=== PATIENT | female | born 1990 | race Hispanic/Latino ===

== ENCOUNTER 2017-10-20 13:37 | Emergency (ER) | payer MEDICAID, SELFPAY ==
[2017-10-20 13:38] VITALS: BP 112/66; PULSE 76; RESP 14; TEMP 36.2; O2SAT 99; BMI 25.7
--- NOTE | 2017-10-20 15:01 | ED.VISSUMM ---
- ER Visit Summary Date of Service: 10/20/17 Chief Complaint: Rash History of Present Illness: The patient is a 27 F who presents with a rash. It began about 2-3 days ago. She is concerned for possible shingles. She initially noticed some red raised bumps which were pruritic and then burning. She thought these may be due to bug bites. However then she became really sick. She clarified the symptoms as a sore throat and chills. She is now concerned that this may be due to shingles because she had similar symptoms previously when she was diagnosed with shingles and then strep throat. No fever chest pain shortness of breath cough congestion vomiting diarrhea. No headache muscle aches or joint aches. Physical Examination: Afebrile vitals are stable Moist mucous membranes Oropharynx is clear no exudates no uvular deviation Heart regular rate and rhythm Lungs are clear Abdomen soft Patient has a few small raised red lesions on her back which appear consistent with possible bug bites. Test Results: Not indicated Emergency Department Course and Treatment: Patient was reassured. Her rash is not consistent with shingles. It is bilateral on the lower back. There are no vesicles. It does not appear cellulitic. It is not hot to the touch and there is no streaking. There is no fluctuance. She was advised to use Benadryl for itching and was discharged home. Treatment Plan: [] Disposition: Discharge Impression: Rash This note was generated with [employer] dictation software. It may contain incorrect words, spelling, and punctuation that were not noted in review of the chart prior to signing ED Disposition - Plan for ED Patient: Chief Complaint: Rash Referrals: Care Physician,No Primary [Primary Care Provider] -
--- NOTE | 2017-10-20 15:04 | ED.DEP ---
ED Disposition - Plan for ED Patient: Chief Complaint: Rash Instructions: ED Bite Insect Referrals: Care Physician,No Primary [Primary Care Provider] -
[2017-10-20 15:11] VITALS: BP 110/76; PULSE 83; RESP 14; O2SAT 99
== END 2017-10-20 15:15 | disposition home or self-care (01) ==
PROVIDERS: Emergency Provider Emergency Medicine
DX: R21 Rash and other nonspecific skin eruption (principal)
CPT/HCPCS: 99282

== ENCOUNTER → 2020-05-20 | Outpatient (CLI) | payer BC, SELFPAY ==
[2019-07-20 12:28] VITALS: BMI 25.7
== END | disposition home or self-care (01) ==
PROVIDERS: Referring Provider Family Medicine; Visit Provider Family Medicine
DX: Z03.818 Encounter for observation for suspected exposure to other biological agents ruled out (principal)
CPT/HCPCS: 87635; U0003

== ENCOUNTER → 2020-06-03 15:00 | Outpatient (CLI) | payer BC, SELFPAY ==
[2019-07-20 12:28] VITALS: BMI 25.7
== END ==
PROVIDERS: Visit Provider Family Medicine
DX: Z03.818 Encounter for observation for suspected exposure to other biological agents ruled out (principal)
CPT/HCPCS: 87635; U0003

== ENCOUNTER → 2020-06-07 17:53 | Outpatient (CLI) | payer BC, SELFPAY ==
[2019-07-20 12:28] VITALS: BMI 25.7
== END ==
PROVIDERS: Referring Provider Nurse Practitioner Family; Visit Provider Nurse Practitioner Family
DX: B34.9 Viral infection, unspecified (principal); Z20.828 Contact with and (suspected) exposure to other viral communicable diseases
CPT/HCPCS: 87635; C9803; U0003

== ENCOUNTER → 2020-07-01 | Outpatient (CLI) | payer BC, SELFPAY ==
[2019-07-20 12:28] VITALS: BMI 25.7
== END | disposition home or self-care (01) ==
LOC: LABSPEC 13:50
PROVIDERS: Referring Provider Family Medicine; Visit Provider Family Medicine
DX: Z03.818 Encounter for observation for suspected exposure to other biological agents ruled out (principal)
CPT/HCPCS: 87635; U0003

== ENCOUNTER 2022-12-20 18:00 | Emergency (ER) | payer MEDICAID, SELFPAY ==
[2022-12-20 18:01] VITALS: BP 117/77; PULSE 127; RESP 18; TEMP 37.1; O2SAT 98; BMI 29.0
[2022-12-20] MEDS: Acetaminophen 650 MG/20 ML UDC PO (19:43)
[2022-12-20] MEDS: Ibuprofen 100 MG/5 ML UDC 600 MG PO (19:45)
--- NOTE | 2022-12-20 19:52 | EX.ED.DYSGE1 ---
HPI History of Present Illness Chief Complaint: Cold Sx Informant: patient Narrative Narrative: Patient is a 32 year old female with remote history of migraines presenting with sore throat, myalgias and flulike symptoms. Patient states she worked a 12-hour shift yesterday. Towards other shift she developed a sore throat, body aches and started shivering. Her temperature got up to 99.7. She states she just felt out of it, has had nasal congestion and had a cold. She has been sleeping all day. She states she took ibuprofen at 430 this morning has had none since. She notes that strep throat has been going around her workplace. She denies any difficulty breathing. She states that she has increased throat pain whenever she coughs. No other complaints at this time. Denies any GI or symptoms. Patient states she is not concerned for . PFSH PFSH Medical History no medical history Home Medications NK 10/20/17 [History Last Taken Unknown] Allergy/AdvReac Type Severity Reaction Status Date / Time No Known Allergies Allergy Verified 12/20/22 18:03 Social History Smoking Status: Never smoker ROS ROS ED Constitutional Constitutional ED: Reports chills, fever(s) and subjective Eyes Eyes: Denies blurry vision or change in vision ENT ENT ED: Reports sore throat; Denies ear pain or rhinorrhea Cardiovascular Cardiovascular: Denies chest pain or palpitations Respiratory/Chest Respiratory/Chest: Reports cough; Denies dyspnea Gastrointestinal Gastrointestinal: Denies abdominal pain, constipation, diarrhea, nausea or vomiting Genitourinary Genitourinary ED: Denies dysuria or hematuria Musculoskeletal Musculoskeletal: Reports myalgias; Denies arthralgias, back pain or neck pain Integumentary Denies rash Neurologic Neurologic: Reports headache(s); Denies paresthesias or weakness Psychiatric Psychiatric: Denies anxiety EXAM Physical Exam Const Vital Signs: 12/20/22 18:01 12/20/22 20:17 Temperature 98.7 F Temperature Source Temporal Pulse Rate 127 H Respiratory Rate 18 Respiratory Effort Normal Non-Labored Respiratory Depth Normal Respiratory Pattern Normal Blood Pressure 117/77 Blood Pressure Mean 90 Pulse Ox 98 Oxygen Delivery Method Room Air Positive well nourished and well developed Constitutional Narrative: Patient looks like she does not feel good but is not appear to be in any acute distress General Appearance ED: well developed and NAD HEENT Reports TM's clear and moist mucous membranes HEENT Narrative: No significant nasal congestion present. No significant tonsillar edema. No exudate present. Patient does have erythema/petechia of her uvula and hard palates. Negative for trauma Tympanic Membrane ED: Yes TM's clear Eyes PERRL and EOMs intact bilaterally Neck supple Neck Narrative: No meningeal signs General: Negative for tenderness Chest Wall inspection of chest normal and palpation of chest normal Resp normal respiratory effort and clear to auscultation bilaterally Cardio regular rhythm and no murmurs Rate: tachycardic GI normal to inspection, nondistended, normoactive bowel sounds and non-tender Extremity normal to inspection Neuro oriented x3 Sensorium / Orientation: alert Motor Exam: general weakness Psych mental status grossly normal Skin no rashes or lesions noted MDM MDM MDM Narrative Medical decision making narrative: Patient is evaluated for flulike symptoms. On arrival she is tachycardic. Patient peers nontoxic. She does not like does not feel good. She has associated myalgias, congestion, cold symptoms and sore throat. Strep swab is negative. Flu and COVID are negative. Patient is given oral ibuprofen and Tylenol. On repeat evaluation she states she is feeling better and ready to go home. She does not appear toxic and improved with antipyretics. I do not think she requires further work-up at this time. In addition she is only had 1 day of symptoms. She is given return precautions. Encouraged to rest and drink plenty of fluids. She verbalizes agreement and understanding this plan. Discharge Plan Triage Chief Complaint: Cold Sx ED Provider: Mariana Strange Dx/Rx/DC Orders Clinical Impression: Viral illness, Headache, Pharyngitis Instructions: ED Pharyngitis, Viral, ED Viral Syndrome (Adult) Prescriptions: No Action NK Primary Care Provider: Leandro Hogan Referrals: Leandro Hogan MD [Primary Care Provider] - Activity Restrictions/Additional Instructions: Alternate ibuprofen and Tylenol. If you have a progression or worsening symptoms please return to the emergency room. Make sure you are resting and drinking plenty of fluids. Your strep swab, COVID and flu swabs were negative today. Your strep swab will be sent for culture. If it does come back positive you will be contacted and called in antibiotics. Disposition Disposition: Home, Self Care Discharge Date/Time: 12/20/22 21:51
== END 2022-12-20 21:51 | disposition home or self-care (01) ==
PROVIDERS: Emergency Provider Emergency Medicine; PCP Family Medicine; Visit Provider Emergency Medicine
DX: B34.9 Viral infection, unspecified (principal); R51.9 Headache, unspecified; J02.9 Acute pharyngitis, unspecified
CPT/HCPCS: 87428; 87880; 99283

== ENCOUNTER 2023-05-16 10:41 | Emergency (ER) | payer SELFPAY ==
[2023-05-16 10:44] VITALS: BP 115/71; PULSE 81; RESP 14; TEMP 36.9; O2SAT 100; BMI 31.0
--- NOTE | 2023-05-16 11:12 | EX.ED.DYSGE1 ---
HPI History of Present Illness Chief Complaint: Rash Narrative Narrative: Patient presents with rash on right hip/buttock area. Patient noted some discomfort in her back last week. She was placing [id number] cream on the area. She then started to notice a rash over the last days. It may be as long as 5 days. But it really started burning and hurting over the last 24 hours. She at first thought the rash may be due to the cream. But now she it feels more like shingles which she had once about 9 years ago. She states other than the rash area she feels fine. There is no weakness. No urinary symptoms. She is eating and drinking normally. She has no medical conditions, takes no medicines and has no allergies. [facility] Medical History History of shingles Home Medications prednisone 20 mg tablet 60 mg (3 x 20 mg) PO DAILY #15 TABLETS 05/16/23 [Rx Last Taken Unknown] valacyclovir 1 gram tablet 1,000 mg PO Q8H #21 tabs 05/16/23 [Rx Last Taken Unknown] Allergy/AdvReac Type Severity Reaction Status Date / Time No Known Allergies Allergy Verified 05/16/23 10:47 Social History Smoking Status: Never smoker ROS ROS ED Constitutional Constitutional ED: Denies chills, fever(s) or subjective ENT ENT ED: Denies rhinorrhea Cardiovascular Cardiovascular: Denies chest pain Respiratory/Chest Respiratory/Chest: Denies cough or dyspnea Gastrointestinal Gastrointestinal: Denies abdominal pain, nausea or vomiting Genitourinary Genitourinary ED: Denies dysuria Musculoskeletal Musculoskeletal: Denies arthralgias, back pain or neck pain Integumentary Reports rash Neurologic Neurologic: Denies headache(s), paresthesias or weakness Hematologic/Lymphatic Hematologic/Lymphatic: Denies easy bleeding or easy bruising Allergic/Immunologic Allergic/Immunologic ED: Denies urticaria EXAM Physical Exam Narrative Exam Narrative: Patient awake alert no acute distress sitting comfortably in bed. HEENT shows no trauma Cardiorespiratory shows easy unlabored breathing. Saturations normal at 100% on room air showing no hypoxia. Abdomen is not distended. Extremities show no swelling. Skin: She does have some clustered vesicular type rash options on the right upper buttock area. These are likely in the L1 or possibly L2 dermatome region. They are only on the right side. This is consistent with shingles. There does not appear to be any secondary infection. Const Vital Signs: 05/16/23 10:44 Temperature 98.4 F Temperature Source Temporal Pulse Rate 81 Respiratory Rate 14 Blood Pressure 115/71 Blood Pressure Mean 85 Pulse Ox 100 Oxygen Delivery Method Room Air MDM MDM MDM Narrative Medical decision making narrative: Even though we may be beyond 3 days, we will initiate meds for shingles. I discussed with the patient that studies have shown benefit to single meds versus combinations. She has no risk factors such as diabetes that would make prednisone more difficult. I think starting prednisone and valacyclovir to try to maximize the chance of improvement is best. Discharge Plan Triage Chief Complaint: Rash ED Provider: Tavon Harrison Dx/Rx/DC Orders Clinical Impression: Shingles Instructions: ED Shingles (Herpes Zoster) Prescriptions: New prednisone 20 mg tablet 60 mg PO DAILY Qty: 15 0RF valacyclovir 1 gram tablet 1,000 mg PO Q8H Qty: 21 0RF Primary Care Provider: Leandro Hogan Referrals: Leandro Hogan MD [Primary Care Provider] - 5-7 Days Disposition Disposition: Home, Self Care
[2023-05-16] MEDS: predniSONE 20 MG Tablet 60 MG PO (11:39)
[2023-05-16 11:43] VITALS: BP 113/74; PULSE 75; RESP 16; O2SAT 98
== END 2023-05-16 11:44 | disposition home or self-care (01) ==
PROVIDERS: Emergency Provider Emergency Medicine; PCP Family Medicine; Visit Provider Emergency Medicine
DX: B02.9 Zoster without complications (principal)
CPT/HCPCS: 99283

== ENCOUNTER 2023-10-17 22:04 | Emergency (ER) | payer SELFPAY ==
[2023-10-17 22:04] VITALS: BP 124/90; PULSE 107; RESP 18; TEMP 36.2; O2SAT 99; BMI 29.5
--- OUTSIDE RECORDS SUMMARY | 2023-10-17 23:00 | XMS RPT_ITS | CCD ---
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 NECK: Supple, full range of motion, no adenopathy, and thyroid normal DERMATOLOGY: Normal, without lesions, non-icteric, and non-hirsute BREAST: soft, non-tender, symmetric, no dominant mass, normal nipple-areolar complex, no lymphadenopathy, and no nipple discharge CHEST: Normal inspiratory effort ABDOMEN: soft, non-tender, and no masses PELVIC: external genitalia normal, normal Bartholin's glands, urethra, [place]'s glands, no vulvar lesions, no cervical lesions, good vaginal support, physiologic discharge present, normal appearing perineal body and perianal region, IUD string visualized 2 cm BIMANUAL: uterus normal size, shape and consistency, no adnexal masses, and non-tender RECTOVAGINAL: deferred. NEURO: alert and oriented x3,exam grossly non-focal EXTREMITIES: normal ASSESSMENT/PLAN: 1) Health maintenance: Pap done with HPV. Mammogram starting age 40. Nutrition, exercise and routine health maintenance exams reviewed. HPV vaccine: second in series today 2. 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 No SI or HI - knows to contact crisis or go to ED if develops. - SERTRALINE 50 MG TABLET - TSH BLD - VITAMIN D 25 HYDROXY - CBC + DIFF 3. Malaise and fatigue - ICD9: 780.79, ICD10: R53.81, R53.83 - TSH BLD - VITAMIN D 25 HYDROXY - CBC + DIFF 4. Postcoital bleeding - ICD9: 626.7, ICD10: N93.0 - GC/CHLAMYDIA DNA DET 5. Screen for STD (sexually transmitted disease) - ICD9: V74.5, ICD10: Z11.3 - GC/CHLAMYDIA DNA DET 6. Need for prophylactic vaccination/inoculation against viral disease - ICD9: V04.89, ICD10: Z23 - THER/PROPH/DIAG INJ, SC/IM - HUMAN PAPILLOMAVIRUS 9-VALENT HPV IM - HUMAN PAPILLOMAVIRUS 9-VALENT HPV IM 7) Contraception: IUD. Contraceptive options reviewed and information provided. 8) Follow up in 2 months. Anila Dimas APRN.LABEL TACKER documented in this encounter [facility] 05-10-2022 Instructions Catherine Vargas RN - 05/10/2022 9:54 AM EDT Take 1/2 tablet of sertraline at bedtime x 2 weeks then increase to whole tablet at bedtime. Gardasil Gardasil is a vaccine to protect against Human Papillomavirus (HPV) types 6, 11, 16, 18, 31,33,45, 52, 58. These viruses cause cancer and precancerous lesions on the cervix (opening between vagina and uterus), in the vagina and on the vulva (skin around the outside of the vagina) as well as genital warts. The vaccine cannot cause these diseases and cannot treat them if already present. Gardasil works best if given before contact with HPV. Most people are exposed to HPV soon after starting sexual activity. The vaccine is recommended between the ages of 9 and 45. Gardasil does not protect against all strains of HPV. Women who receive the vaccine still need to have regular pelvic exams and cervical cancer screening with the pap smear. You should ask your doctor if Gardasil is right for you if you have a weakened immune system, a bleeding disorder, plan to become soon or have a current illness causing fever. Gardasil is not recommended for women. You should be sure your doctor is aware of any allergies you have and all medications and herbal supplements you take. Gardasil is given to those ages 9-14 in 2 doses at 0 and 8 months. In ages 15-45, three injections are given at 0,2,6 months. Common side effects include pain, redness, itching and swelling at the injection site, nausea, fever, dizziness and fainting. Rare but potentially serious reactions have been reported. These include allergic reaction, swollen glands, joint and muscle pain, weakness and Guillain-[place] syndrome. Gardasil Gardasil is a vaccine to protect against Human Papillomavirus (HPV) types 6, 11, 16, 18, 31,33,45, 52, 58. These viruses cause cancer and precancerous lesions on the cervix (opening between vagina and uterus), in the vagina and on the vulva (skin around the outside of the vagina) as well as genital warts. The vaccine cannot cause these diseases and cannot treat them if already present. Gardasil works best if given before contact with HPV. Most people are exposed to HPV soon after starting sexual activity. The vaccine is recommended between the ages of 9 and 45. Gardasil does not protect against all strains of HPV. Women who receive the vaccine still need to have regular pelvic exams and cervical cancer screening with the pap smear. You should ask your doctor if Gardasil is right for you if you have a weakened immune system, a bleeding disorder, plan to become soon or have a current illness causing fever. Gardasil is not recommended for women. You should be sure your doctor is aware of any allergies you have and all medications and herbal supplements you take. Gardasil is given to those ages 9-14 in 2 doses at 0 and 8 months. In ages 15-45, three injections are given at 0,2,6 months. Common side effects include pain, redness, itching and swelling at the injection site, nausea, fever, dizziness and fainting. Rare but potentially serious reactions have been reported. These include allergic reaction, swollen glands, joint and muscle pain, weakness and Guillain-[place] syndrome. documented in this encounter [facility] 01-13-2022 Influenza virus A and B RNA and SARS-CoV-2 (COVID-19) N gene panel BOUBACAR+probe (Resp) COVID 19 RESULT: SARS-CoV-2 (Agent of COVID-19) Not Detected by RT-PCR or equivalent method. [id number] (REGINALDO)_EUA This test was developed and its performance characteristics determined by [facility] [place]. This test has been authorized by FDA under an Emergency Use Authorization (EUA). This test has been validated in accordance with the FDA's Guidance Document Policy for Diagnostics Testing in Laboratories Certified to Perform High Complexity Testing under CLIA prior to Emergency use Authorization for Coronavirus Disease 2019 during the Public Health Emergency issued on November 01, 2019. Test performed by [facility], [facility] [place], [address] [address]. INFLUENZA A PCR: Positive for Influenza A by RT-PCR INFLUENZA B PCR: Negative for Influenza B by RT-PCR [facility] documented as of this encounter (statuses as of 01/13/2022) [facility] History of Past illness Narrative* Problem Noted Date Resolved Date Nausea/vomiting in 10/19/2016 Overview: 10/19/2016 Patient is complaining of nausea and vomiting in . Symptoms have improved this week. Recommended Vitamin B6. Discussed dietary considerations. Advised patient to call/come in if she is unable to keep any food or fluids down in a 24-hour period. Patient requested diagnostic testing 10/19/2016 12/18/2016 Overview: 10/19/2016.Patient desires nuchal ultrasound. Declines CF carrier screening testing Neelima Paul RN Acute deep vein thrombosis ( DVT) of distal vein of right lower extremity 12/20/2015 10/23/2016 Group B Streptococcus carrier, antepartum 201204/30/2013 Overview: Will need IV antibiotics in labor Jocelyn Guzman NP Supervision of normal 08/26/2012 04/30/2013 Overview: 08/26: flu vaccine given Patient requested diagnostic testing 08/13/2012 04/30/2013 Overview: 08/13/2012Patient desires early screening in with sequential testing 10/07/2012negative Sequential screen first trimester. The first part of the Sequential Screen reports that her risk for Down syndrome decreased from her age-related risk of 1:830 to 1:10,000 and her Trisomy 18 risk decreased from her age-related risk of 1:2,900 to 1:10,000. Based on these results Dr. Coates's recommendation is for patient to follow-up with Sequential second trimester screening (10/25-11/08) and level II anatomy scan after 18wks. 11/07/2012negative Sequential screen second trimester. The second part of the Sequential Screen reports that her risk for Down syndrome decreased from her age-related risk of 1:1,100 to 1:10,000, her Trisomy 18 risk decreased from her age-related risk of 1:4,400 to 1:10,000 and the ONTD risk is 1:1,700. Based on these results Dr. Coates's recommendation is for patient to follow-up with level II anatomy scan after 18 wks, already scheduled for 11/19/12. Bacterial vaginosis 08/08/2012 04/30/2013 Overview: 08/13/2012Patient saw Dr. Domenica Small on August 08 for a BV infection. Patient is currently taking Flagyl and her symptoms are improving. Chlamydia 06/12/2012 04/30/2013 Surveillance of previously p rescribed intrauterine contraceptive device 01/20/2010 03/22/2010 documented as of this encounter (statuses as of 05/10/2022) [facility] History of Past illness Narrative* Problem Noted Date Resolved Date Nausea/vomiting in 10/19/2016 Overview: 10/19/2016 Patient is complaining of nausea and vomiting in . Symptoms have improved this week. Recommended Vitamin B6. Discussed dietary considerations. Advised patient to call/come in if she is unable to keep any food or fluids down in a 24-hour period. Patient requested diagnostic testing 10/19/2016 12/18/2016 Overview: 10/19/2016.Patient desires nuchal ultrasound. Declines CF carrier screening testing Neelima Paul RN Acute deep vein thrombosis ( DVT) of distal vein of right lower extremity 12/20/2015 10/23/2016 Group B Streptococcus carrier, antepartum 201204/30/2013 Overview: Will need IV antibiotics in labor Jocelyn Guzman NP Supervision of normal 08/26/2012 04/30/2013 Overview: 08/26: flu vaccine given Patient requested diagnostic testing 08/13/2012 04/30/2013 Overview: 08/13/2012Patient desires early screening in with sequential testing 10/07/2012negative Sequential screen first trimester. The first part of the Sequential Screen reports that her risk for Down syndrome decreased from her age-related risk of 1:830 to 1:10,000 and her Trisomy 18 risk decreased from her age-related risk of 1:2,900 to 1:10,000. Based on these results Dr. Coates's recommendation is for patient to follow-up with Sequential second trimester screening (10/25-11/08) and level II anatomy scan after 18wks. 11/07/2012negative Sequential screen second trimester. The second part of the Sequential Screen reports that her risk for Down syndrome decreased from her age-related risk of 1:1,100 to 1:10,000, her Trisomy 18 risk decreased from her age-related risk of 1:4,400 to 1:10,000 and the ONTD risk is 1:1,700. Based on these results Dr. Coates's recommendation is for patient to follow-up with level II anatomy scan after 18 wks, already scheduled for 11/19/12. Bacterial vaginosis 08/08/2012 04/30/2013 Overview: 08/13/2012Patient saw Dr. Domenica Small on August 08 for a BV infection. Patient is currently taking Flagyl and her symptoms are improving. Chlamydia 06/12/2012 04/30/2013 Surveillance of previously p rescribed intrauterine contraceptive device 01/20/2010 03/22/2010 documented as of this encounter (statuses as of 07/31/2022) [facility] History of Past illness Narrative* Problem Noted Date Resolved Date Nausea/vomiting in 10/19/2016 Overview: 10/19/2016 Patient is complaining of nausea and vomiting in . Symptoms have improved this week. Recommended Vitamin B6. Discussed dietary considerations. Advised patient to call/come in if she is unable to keep any food or fluids down in a 24-hour period. Patient requested diagnostic testing 10/19/2016 12/18/2016 Overview: 10/19/2016.Patient desires nuchal ultrasound. Declines CF carrier screening testing Neelima Paul RN Acute deep vein thrombosis ( DVT) of distal vein of right lower extremity 12/20/2015 10/23/2016 Group B Streptococcus carrier, antepartum 201204/30/2013 Overview: Will need IV antibiotics in labor Jocelyn Guzman NP Supervision of normal 08/26/2012 04/30/2013 Overview: 08/26: flu vaccine given Patient requested diagnostic testing 08/13/2012 04/30/2013 Overview: 08/13/2012Patient desires early screening in with sequential testing 10/07/2012negative Sequential screen first trimester. The first part of the Sequential Screen reports that her risk for Down syndrome decreased from her age-related risk of 1:830 to 1:10,000 and her Trisomy 18 risk decreased from her age-related risk of 1:2,900 to 1:10,000. Based on these results Dr. Coates's recommendation is for patient to follow-up with Sequential second trimester screening (10/25-11/08) and level II anatomy scan after 18wks. 11/07/2012negative Sequential screen second trimester. The second part of the Sequential Screen reports that her risk for Down syndrome decreased from her age-related risk of 1:1,100 to 1:10,000, her Trisomy 18 risk decreased from her age-related risk of 1:4,400 to 1:10,000 and the ONTD risk is 1:1,700. Based on these results Dr. Coates's recommendation is for patient to follow-up with level II anatomy scan after 18 wks, already scheduled for 11/19/12. Bacterial vaginosis 08/08/2012 04/30/2013 Overview: 08/13/2012Patient saw Dr. Domenica Small on August 08 for a BV infection. Patient is currently taking Flagyl and her symptoms are improving. Chlamydia 06/12/2012 04/30/2013 Surveillance of previously p rescribed intrauterine contraceptive device 01/20/2010 03/22/2010 documented as of this encounter (statuses as of 10/17/2022) [facility] Influenza-like illness- Primary Influenza with other respiratory manifestations [facility] Encounter for gynecological examination with abnormal finding- Primary Routine gynecological examination Anxiety associated with depression Dysthymic disorder Malaise and fatigue Other malaise and fatigue Postcoital bleeding Screen for STD (sexually transmitted disease) Screening examination for venereal disease Need for prophylactic vaccination/inoculation against viral disease Need for prophylactic vaccination and inoculation against other viral diseases Encounter for Papanicolaou smear for cervical cancer screening Special screening examination for human papillomavirus (HPV) [facility] Encounter for IUD removal- Primary Encounter for removal of intrauterine contraceptive device [facility] Outpatient Procedure (Routine) - Authorized Specialty Diagnoses / Procedures Referred By Denae ivy Referred To Contact [facility] Diagnoses Encounter for IUD removal Procedures REMOVE INTRAUTERINE DEVICE REMOVE INTRAUTERINE DEVICE Anila Dimas APRN.CNP [address] [place] [address] [facility] [address] [place] [address] Referral ID Status Reason Start Date Expiration Date Visits Requested Visits Authorized [id number] Authorized Auto-Generat ed Referral 10/17/2022 10/17/2023 1 1 [facility] Health Concerns Infection Onset Date Last Indicated Resolved Time COVID-19 Rule-Out 01/13/2022 01/13/2022 Summary Purpose Family History No Family History Records Found Advance Directives No Advanced Directives Records Found Additional Source Comments Source Comments (unrecognize d section and content) In the event this informatio n is protected by the Federal Confidentiality of Alcohol and Drug Abuse Patient Records regulations: The Federal rules restrict any use of the information to criminally investigate or prosecute any alcohol or drug abuse patient.[facility] the event this information is protected by the Federal Confidentiality of Alcohol and Drug Abuse Patient Records regulations: The Federal rules restrict any use of the information to criminally investigate or prosecute any alcohol or drug abuse patient.[facility] the event this information is protected by the Federal Confidentiality of Alcohol and Drug Abuse Patient Records regulations: The Federal rules restrict any use of the information to criminally investigate or prosecute any alcohol or drug abuse patient.[facility] the event this information is protected by the Federal Confidentiality of Alcohol and Drug Abuse Patient Records regulations: The Federal rules restrict any use of the information to criminally investigate or prosecute any alcohol or drug abuse patient.[facility] Reason for Visit (unrecogniz ed section and content) Reason Onset Date Comments 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 Gardasil Injection 05/10/2022 Reason Comments Results Reason Comments Orders Care Teams (unrecognized sec tion and content) Groundman Relationship Specialty Start Date End Date Yolis Almonte MD [address] [place], [place] [id number] PCP - General Family Practice 07/10/19 Groundman Relationship Specialty Start Date End Date Yolis Almonte MD [address] [place] [address] PCP - General Family Medicine 07/10/19 Groundman Relationship Specialty Start Date End Date Yolis Almonte MD [address] [place] [address] PCP - General Family Medicine 07/10/19 INFORMATION SOURCE (unrecogn ized section and content) FOR RECORDS PERTAINING TO PATIENTS WHO ARE OR HAVE BEEN ENROLLED IN A CHEMICAL DEPENDENCY/SUBSTANCEABUSE PROGRAM, SOME INFORMATION MAY BE OMITTED. This clinical summary was aggregated from multiple sources. Caution should be exercised in using it in the provision of clinical care. This summary normalizes information from multiple sources, and as a consequence, information in this document may materially change the coding, format and clinical context of patient data. In addition, data may be omitted in some cases. CLINICAL DECISIONS SHOULD BE BASED ON THE PRIMARY CLINICAL RECORDS. [facility] Consult A Doctor [facility]. provides no warranty or guarantee of the accuracy or completeness of information in this document.
[2023-10-17] MEDS: Acetaminophen 500 MG Tablet 1000 MG PO (23:35)
[2023-10-17 23:41] VITALS: BP 120/74; PULSE 98; RESP 18; TEMP 37.3; O2SAT 99
--- NOTE | 2023-10-17 23:43 | EX.ED.DYSGE1 ---
HPI History of Present Illness Chief Complaint: General Illness Narrative Narrative: 33-year-old female present with fever, chills, myalgias, rhinorrhea, cough since yesterday. Patient states she was at school today and they told her to go home because they do not want to be exposed to her. Patient denies any chest pain or shortness of breath. She states has been taking DayQuil and NyQuil without symptomatic relief. [facility] Medical History History of shingles Home Medications ondansetron 4 mg disintegrating tablet 4 mg PO Q8H PRN PRN Nausea #14 tabs 10/17/23 [Rx Last Taken Unknown] Allergy/AdvReac Type Severity Reaction Status Date / Time No Known Allergies Allergy Verified 10/17/23 22:06 Social History Smoking Status: Never smoker ROS ROS ED Constitutional Constitutional ED: Reports chills and fever(s); Denies sweats Eyes Eyes: Denies blurry vision or change in vision ENT ENT ED: Reports rhinorrhea and sore throat; Denies ear pain Cardiovascular Cardiovascular: Denies chest pain, palpitations or racing heartbeat Respiratory/Chest Respiratory/Chest: Reports cough; Denies dyspnea or sputum Gastrointestinal Gastrointestinal: Denies abdominal pain, constipation, diarrhea, nausea or vomiting Genitourinary Genitourinary ED: Denies dysuria, hematuria or urinary frequency Musculoskeletal Musculoskeletal: Reports myalgias; Denies arthralgias or neck pain Integumentary Denies abscess, Abrasions or rash Neurologic Neurologic: Denies headache(s), paresthesias or weakness Psychiatric Psychiatric: Denies anxiety, depression, suicidal ideation or suicidal thoughts Endocrine Endocrinology: Denies polydipsia or polyuria EXAM Physical Exam Const Vital Signs: 10/17/23 22:04 10/17/23 22:34 10/17/23 23:41 Temperature 97.1 F L 99.2 F H Temperature Source Temporal Pulse Rate 107 H 98 Respiratory Rate 18 18 Respiratory Effort Normal Respiratory Pattern Normal Blood Pressure 124/90 H 120/74 Blood Pressure Mean 101 89 Pulse Ox 99 99 Oxygen Delivery Method Room Air Positive well nourished General Appearance ED: NAD; Negative for pallor HEENT Reports moist mucous membranes Eyes PERRL and EOMs intact bilaterally Neck no lymphadenopathy Chest Wall inspection of chest normal Resp normal respiratory effort Auscultation: Negative for rales, rhonchi or wheezes Cardio regular rate and regular rhythm Neuro oriented x3 and CN's II-XII intact bilaterally Sensorium / Orientation: alert Psych mental status grossly normal Skin General Skin Exam: Negative for jaundice or pallor MDM MDM MDM Narrative Medical decision making narrative: Patient presenting with viral symptoms. She is given Tylenol 1 g p.o. Vital signs are stable she is afebrile. I suspect she has COVID or influenza. She tested positive for COVID. She is given Zofran for home as needed. She counseled that plenty of fluids. I gave her work and school note. Return precautions were discussed. Impression: 1. COVID-19 Lab Data Attestation: I reviewed the patient's lab results. Discharge Plan Triage Chief Complaint: General Illness ED Provider: Juventino King Dx/Rx/DC Orders Clinical Impression: COVID-19 Instructions: Coronavirus Disease 2019 (COVID-19): Overview Prescriptions: New ondansetron 4 mg tablet,disintegrating 4 mg PO Q8H PRN PRN (Reason: Nausea) Qty: 14 0RF Stand Alone Forms: ED Work / School Excuse Primary Care Provider: Leandro Hogan Referrals: Leandro Hogan MD [Primary Care Provider] - Disposition Disposition: Home, Self Care
== END 2023-10-17 23:42 | disposition home or self-care (01) ==
PROVIDERS: Emergency Provider Student in an Organized Health Care Education/Training Program; PCP Family Medicine; Visit Provider Student in an Organized Health Care Education/Training Program
DX: U07.1 COVID-19 (principal)
CPT/HCPCS: 87631; 99283